=== PATIENT | female | born 1980 | race Caucasian/White ===

== ENCOUNTER 2016-09-04 20:52 | Emergency (ER) | payer MEDICAID, OTHER ==
[~2016-09-04] VITALS: Ht 162.6 cm; Wt 68.0 kg
[~2016-09-04 20:52] MED LIST: FERR325T PO; ZOLO50TA PO
[2016-09-04 20:54] VITALS: BP 146/82; PULSE 88; RESP 16; TEMP 97.9; O2SAT 99
[2016-09-04 22:16] LABS: BLOOD, URINE NEG (NEG); COMMENT (UR) CULT NOT INDICATED; CULTURE IF INDICATED CULT NOT INDICATED; GLUCOSE,URINE NEG (NEG); KETONE, URINE NEG (NEG); MUCUS URINE FEW /lpf (OCC); NITRITE,URINE NEG (NEG); PH, URINE 5.5 (5.0-8.5); SQUAMOUS EPITHELIAL CELL URINE <1 /hpf (0-5); URINE COLOR YELLOW (YELLW/STRAW)
[2016-09-04] MEDS ORDERED: SODIUM CHLORIDE 0.9% FLUSH 5 ML FLUSH IVF PRN (23:30)
[2016-09-04 23:45] VITALS: O2SAT 98
[2016-09-04 23:52] LABS: AUTOMATED NEUTROPHIL # 5.3 TH/MM3 (1.8-7.7); BASOPHIL # 0.1 TH/MM3 (0-0.2); BASOPHIL % 0.7 % (0.0-2.0); EOSINOPHIL # 0.1 TH/MM3 (0-0.4); EOSINOPHIL % 1.4 % (0.0-4.0); HEMATOCRIT 43.2 % (35.0-46.0); HEMO FLAGS DIFF FINAL; LYMPH % 27.4 % (9.0-44.0); LYMPHOCYTE # 2.3 TH/MM3 (1.0-4.8); MEAN CELL VOLUME 78.2 FL (80.0-100.0); MEAN CORPUSCULAR HEMOGLOBIN 25.9 PG (27.0-34.0); MEAN CORPUSCULAR HGB CONC 33.1 % (32.0-36.0); MONO % 7.6 % (0.0-8.0); NEUT % 62.9 % (16.0-70.0); PLATELET COUNT 340 TH/MM3 (150-450); RED BLOOD COUNT 5.53 MIL/MM3 (4.00-5.30); RED CELL DISTRIBUTION WIDTH 13.5 % (11.6-17.2); WHITE BLOOD COUNT 8.5 TH/MM3 (4.0-11.0)
--- NOTE | 2016-09-05 00:04 | PD ---
HPI Chief Complaint: Flank/Kidney Pain Time Seen by Provider: 23:15 Travel History International Travel<30 days: No Contact w/Intl Traveler<30days: No Traveled to known affect area: No History of Present Illness HPI The patient is a 35 year old female who presents to the [facility] emergency department with a history of left-sided flank pain and she reports began a week and a half ago. She reports that the pain has begun to radiate around to the left side of the abdomen. She reports that initially she thought that it was a musculoskeletal strain. She reports that she has been using Thelma balm appointment, a heating pad intermittently, and/therapy without any improvement. She reports that over the last day she began to have itching and numbness along the skin on the left side. She denies having any rashes. She reports that the pain is constant and sharp in character although waxes and wanes in severity. She denies any alleviating factors. She reports that the pain is severe. She denies having any vomiting or diarrhea associated with this. The patient denies any recent fevers, cough, congestion, neck pain, chest pain, shortness of breath, urinary symptoms, or neurologic symptoms. LMP: August 08, 2016. [facility] Past Medical History Narrative Medical The patient's past medical history is significant for elevated pain that was diagnosed as endometriosis by exploratory laparoscopy Cancer: No Cardiovascular Problems: No Diabetes: No Diminished Hearing: No Endocrine: No Genitourinary: No Hepatitis: No Hiatal Hernia: No Immune Disorder: No Musculoskeletal: Yes (BACK PAIN ASSOCIATED WITH PELVIC PAIN) Neurologic: No Psychiatric: Yes Reproductive: Yes (PELVIC PAIN, OVARIAN CYST) Respiratory: No Thyroid Disease: No Tetanus Vaccination: < 5 Years Influenza Vaccination: Yes ?: Not LMP: TUBAL LIGATION Past Surgical History Narrative Surgical The patient's past surgical history is significant for an exploratory laparoscopy, wisdom teeth extraction, and a bilateral tubal ligation. Abdominal Surgery: Yes (EXP LAP) AICD: No Joint Replacement: No Oral Surgery: Yes (WISDOM TEETH EXTRACTION) Pacemaker: No Other Surgery: Yes Social History Alcohol Use: No Tobacco Use: No Substance Use: No Allergies-Medications (Allergen,Severity, Reaction): Coded Allergies: No Known Allergies (Unverified , 09/04/16) Reported Meds & Prescriptions Reported Meds & Active Scripts Active Flexeril (Cyclobenzaprine HCl) 5 Mg Tab 5 Mg PO TID PRN Naproxen EC (Naproxen) 500 Mg Tabdr 500 Mg PO BID PRN Review of Systems Except as stated in HPI: all other systems reviewed are Neg General / Constitutional: No: Fever Eyes: No: Visual changes HENT: No: Headaches Cardiovascular: No: Chest Pain or Discomfort Respiratory: No: Shortness of Breath Gastrointestinal: Positive: Abdominal Pain, No: Nausea, Vomiting, Diarrhea Genitourinary: Positive: Flank Pain (left flank pain), No: Urgency, Frequency , Dysuria Musculoskeletal: Positive: Myalgias, Pain Skin: Positive Itching, No Rash Neurologic: No: Weakness, Focal Abnormalities, Change in Mentation, Slurred Speech, Sensory Disturbance Psychiatric: No: Depression Endocrine: No: Polydipsia Hematologic/Lymphatic: No: Easy Bruising Physical Exam Narrative General: The patient is a well-developed well-nourished female in no acute distress. Head and Neck exam: Head is normocephalic atraumatic. Eyes: EOMI, pupils are equal round and reactive to light. Nose: Midline septum with pink mucous membranes Mouth: Dentition unremarkable. Moist mucus membranes. Posterior oropharynx is not erythematous. No tonsillar hypertrophy. Uvula midline. Airway patent. Neck: No palpable lymphadenopathy. No nuchal rigidity. No thyromegaly. Cardiovascular: Regular rate and rhythm without murmurs, gallops, or rubs. Lungs: Clear to auscultation bilaterally. No wheezes, rhonchi, or rales. Abdomen: Soft, without tenderness to palpation in all 4 quadrants of the abdomen. No guarding, rebound, or rigidity. Normal bowel sounds are audible. No tenderness on palpation of McBurney's point. Negative Mayo's sign. Extremities: No clubbing, cyanosis, or edema. 2+ pulses in all 4 extremities. Back: No spinous process tenderness to palpation. Left-sided CVA tenderness on palpation. No rashes noted on her back or upper abdomen. Neurologic Exam: Grossly nonfocal. Skin Exam: No rash noted. Intact skin that is warm and dry. Data Data Last Documented VS Vital Signs Date Time Temp Pulse Resp B/P Pulse Ox O2 Delivery O2 Flow Rate FiO2 09/04/16 23:45 98 Room Air 09/04/16 21:37 16 09/04/16 20:54 97.9 88 146/82 Orders Urinalysis - C+S If Indicated (09/04/16 21:48) Complete Blood Count With Diff (09/04/16 23:20) Ct Abd/Pel W/O Iv Contrast (09/04/16 23:20) Iv Access Insert/Monitor (09/04/16 23:20) Ecg Monitoring (09/04/16 23:20) Oximetry (09/04/16 23:20) Sodium Chloride 0.9% Flush (Ns Flush) (09/04/16 23:30) Ed Urine Pregnancytest Poc (09/04/16 23:20) C-Reactive Protein (Crp) (09/04/16 23:21) Comprehensive Metabolic Panel (09/04/16 23:40) Lipase (09/04/16 23:40) Sodium Chlor 0.9% 1000 Ml Inj (Ns 1000 M (09/05/16 00:15) Ketorolac Inj (Toradol Inj) (09/05/16 00:15) Labs Laboratory Tests Test 09/04/16 09/04/16 21:49 23:40 Urine Color YELLOW Urine Turbidity CLEAR Urine pH 5.5 Urine Specific [place] 1.015 Urine Protein NEG mg/dL Urine Glucose (UA) NEG mg/dL Urine Ketones NEG mg/dL Urine Occult Blood NEG Urine Nitrite NEG Urine Bilirubin NEG Urine Urobilinogen LESS THAN 2.0 MG/DL Urine Leukocyte Esterase NEG Urine RBC 1 /hpf Urine WBC LESS THAN 1 /hpf Urine Squamous Epithelial <1 /hpf Cells Urine Mucus FEW /lpf Microscopic Urinalysis Comment CULT NOT INDICATED White Blood Count 8.5 TH/MM3 Red Blood Count 5.53 MIL/MM3 Hemoglobin 14.3 GM/DL Hematocrit 43.2 % Mean Corpuscular Volume 78.2 FL Mean Corpuscular Hemoglobin 25.9 PG Mean Corpuscular Hemoglobin 33.1 % Concent Red Cell Distribution Width 13.5 % Platelet Count 340 TH/MM3 Mean Platelet Volume 8.0 FL Neutrophils (%) (Auto) 62.9 % Lymphocytes (%) (Auto) 27.4 % Monocytes (%) (Auto) 7.6 % Eosinophils (%) (Auto) 1.4 % Basophils (%) (Auto) 0.7 % Neutrophils # (Auto) 5.3 TH/MM3 Lymphocytes # (Auto) 2.3 TH/MM3 Monocytes # (Auto) 0.6 TH/MM3 Eosinophils # (Auto) 0.1 TH/MM3 Basophils # (Auto) 0.1 TH/MM3 CBC Comment DIFF FINAL Differential Comment Sodium Level 136 MEQ/L Potassium Level 3.7 MEQ/L Chloride Level 101 MEQ/L Carbon Dioxide Level 29.5 MEQ/L Anion Gap 6 MEQ/L Blood Urea Nitrogen 8 MG/DL Creatinine 0.88 MG/DL Estimat Glomerular Filtration 74 ML/MIN Rate Random Glucose 89 MG/DL Calcium Level 9.0 MG/DL Total Bilirubin 0.3 MG/DL Aspartate Amino Transf 11 U/L (AST/SGOT) Alanine Aminotransferase 26 U/L (ALT/SGPT) Alkaline Phosphatase 92 U/L C-Reactive Protein 0.35 MG/DL Total Protein 7.9 GM/DL Albumin 4.0 GM/DL Lipase 158 U/L [facility] Medical Decision Making Medical Screen Exam Complete: Yes Emergency Medical Condition: Yes Medical Record Reviewed: Yes Interpretation(s) Laboratory Tests Test 09/04/16 09/04/16 21:49 23:40 Urine Color YELLOW Urine Turbidity CLEAR Urine pH 5.5 Urine Specific [place] 1.015 Urine Protein NEG mg/dL Urine Glucose (UA) NEG mg/dL Urine Ketones NEG mg/dL Urine Occult Blood NEG Urine Nitrite NEG Urine Bilirubin NEG Urine Urobilinogen LESS THAN 2.0 MG/DL Urine Leukocyte Esterase NEG Urine RBC 1 /hpf Urine WBC LESS THAN 1 /hpf Urine Squamous Epithelial <1 /hpf Cells Urine Mucus FEW /lpf Microscopic Urinalysis Comment CULT NOT INDICATED White Blood Count 8.5 TH/MM3 Red Blood Count 5.53 MIL/MM3 Hemoglobin 14.3 GM/DL Hematocrit 43.2 % Mean Corpuscular Volume 78.2 FL Mean Corpuscular Hemoglobin 25.9 PG Mean Corpuscular Hemoglobin 33.1 % Concent Red Cell Distribution Width 13.5 % Platelet Count 340 TH/MM3 Mean Platelet Volume 8.0 FL Neutrophils (%) (Auto) 62.9 % Lymphocytes (%) (Auto) 27.4 % Monocytes (%) (Auto) 7.6 % Eosinophils (%) (Auto) 1.4 % Basophils (%) (Auto) 0.7 % Neutrophils # (Auto) 5.3 TH/MM3 Lymphocytes # (Auto) 2.3 TH/MM3 Monocytes # (Auto) 0.6 TH/MM3 Eosinophils # (Auto) 0.1 TH/MM3 Basophils # (Auto) 0.1 TH/MM3 CBC Comment DIFF FINAL Differential Comment Sodium Level 136 MEQ/L Potassium Level 3.7 MEQ/L Chloride Level 101 MEQ/L Carbon Dioxide Level 29.5 MEQ/L Anion Gap 6 MEQ/L Blood Urea Nitrogen 8 MG/DL Creatinine 0.88 MG/DL Estimat Glomerular Filtration 74 ML/MIN Rate Random Glucose 89 MG/DL Calcium Level 9.0 MG/DL Total Bilirubin 0.3 MG/DL Aspartate Amino Transf 11 U/L (AST/SGOT) Alanine Aminotransferase 26 U/L (ALT/SGPT) Alkaline Phosphatase 92 U/L C-Reactive Protein 0.35 MG/DL Total Protein 7.9 GM/DL Albumin 4.0 GM/DL Lipase 158 U/L Last Impressions Abdomen/Pelvis CT 09/04/16 2320 Signed Impressions: Service Date/Time: Monday, September 05, 2016 00:23 - CONCLUSION: 1. No acute findings. Mild constipation. Specifically no evidence for renal calculi or obstructive uropathy. Everton Pantoja MD Differential Diagnosis Pyelonephritis, versus kidney stone, versus musculoskeletal strain, versus shingles. Narrative Course During the course of the patients emergency department visit, the patients history, examination, and differential diagnosis were reviewed with the patient. The patient had IV access obtained and blood work sent for analysis. The patient was placed on a machine package sealer with oximetry and blood pressure monitoring. A CT scan of the abdomen and pelvis was ordered to rule out kidney stone. The patient was provided normal saline 1 L IV fluid bolus, Toradol 15 mg IV 1 for pain. The patients laboratory studies were reviewed and remarkable for a white count of 8.5, hemoglobin 14.3, platelets 340 with a normal differential, CMP is unremarkable, lipase 158, urinalysis unremarkable. Radiology studies were reviewed and remarkable for a CT scan of the abdomen and pelvis that shows no acute findings, mild constipation, no evidence of renal calculi or obstructive uropathy. The patient is resting comfortably and feels better, is alert and in no distress. The patients results and examination findings were discussed with her. The repeat examination is unremarkable and benign. The history, exam, diagnostic testing, and current condition do not suggest any significant pathology to warrant further testing, continued ED treatment, admission, or surgical evaluation at this point. The vital signs have been stable. The patient does not have uncontrollable pain, intractable vomiting, or other significant symptoms. The patient's condition is stable and appropriate for discharge. The patient will pursue further outpatient evaluation with a primary care physician or other designated or consulting physician as indicated in the discharge instructions. The patient expressed understanding and was agreeable with this plan. Diagnosis Primary Impression: Left flank pain Additional Impression: Abdominal pain Qualified Code: R10.32 - Left lower quadrant pain Referrals: Primary Care Physician 3 days Patient Instructions: Abdominal Pain (ED), Flank Pain (ED), General Instructions Med/Other Pt SpecificInfo: Prescription(s) given Scripts Cyclobenzaprine (Flexeril)5 Mg Tab5 Mg PO TID PRN (SPASM) #12 TAB Ref 0 Prov:Ira Perez MD 09/05/[address] (Naproxen EC)500 Mg Sbose962 Mg PO BID PRN (PAIN GREATER THAN 5) # 10 TAB Ref 0 Prov:Ira Perez MD 09/05/16 Disposition: 01 DISCHARGE HOME Condition: Stable Ira Perez MD Sep 05, 2016 00:04
[2016-09-05 00:09] LABS: ANION GAP 6 MEQ/L (5-15); AST (GOT) 11 U/L (15-37); BICARBONATE 29.5 MEQ/L (21.0-32.0); BLOOD UREA NITROGEN 8 MG/DL (7-18); CHLORIDE 101 MEQ/L (98-107); GLOMERULAR FILTRATION RATE 74 ML/MIN (>89); POTASSIUM 3.7 MEQ/L (3.5-5.1); SODIUM (NA) 136 MEQ/L (136-145)
[2016-09-05 00:12] LABS: ALKALINE PHOSPHATASE 92 U/L (45-117); ALT (GPT) 26 U/L (10-53); TOTAL BILIRUBIN ADULT 0.3 MG/DL (0.2-1.0)
[2016-09-05] MEDS ORDERED: KETOROLAC TROMETHAMINE 30 MG/ML (IVP) VIAL IV PUSH ONE (00:15)
[2016-09-05] MEDS ORDERED: SODIUM CHLOR 0.9% 1000 ML INJ 1,000 ML IV ONE (00:15)
--- NOTE | 2016-09-05 00:41 | RADRPT ---
EXAM DATE/TIME: 09/05/2016 00:23 [place] COMPARISON: No previous studies available for comparison. INDICATIONS : Left flank pain past week. ORAL CONTRAST: No oral contrast ingested. RADIATION DOSE: 6.15 CTDIvol (mGy) MEDICAL HISTORY : None SURGICAL HISTORY : None. ENCOUNTER: Initial ACUITY: 1 week PAIN SCALE: 7/10 LOCATION: Left flank TECHNIQUE: Volumetric scanning of the abdomen and pelvis was performed. Using automated exposure control and ad justment of the mA and/or kV according to patient size, radiation dose was kept as low as reasonably achievable to obtain optimal diagnostic quality images. FINDINGS: Lung bases are clear. No acute findings in the liver, spleen, adrenals, kidneys or pancreas. Specific ally no hydronephrosis or obstructive uropathy. No renal or ureteral calculi are identified. There is mild constipation. No free fluid or free air. No bowel obstruction. CONCLUSION: 1. No acute findings. Mild constipation. Specifically no evidence for renal calculi or obstructive ur opathy. Everton Pantoja MD on September 05, 2016 at 0:35 Board Certified Radiologist. This report was verified electronically.
[2016-09-05] MEDS ORDERED: CYCL5TAB PO (01:44)
[2016-09-05] MEDS ORDERED: NAPR1TAB34 PO (01:44)
[2016-12-22] MEDS ORDERED: HYDR-3516 PO (21:27)
[2016-12-22] MEDS ORDERED: NAPR-239 PO (21:27)
[2016-12-22] MEDS ORDERED: TRAM50TA PO (21:27)
[2016-12-22] MEDS ORDERED: IBUP-232 PO (22:16)
== END 2016-09-05 01:54 | disposition home or self-care (01) ==
LOC: NEPE 20:52
DX: R10.9 Unspecified abdominal pain (principal); R10.32 Left lower quadrant pain
CPT/HCPCS: 74176; 80053; 81001; 83690; 84703; 85025; 86140; 96361; 96374; 99284; J1885; J7030